=== PATIENT | female | born 1980 | race Two or more races ===

== ENCOUNTER 2018-08-04 20:33 | Emergency (ER) | payer BC ==
[2018-08-04] MEDS ORDERED: Amoxicillin/Clavulanate K 875-125 MG Tab PO ONE (21:08)
[2018-08-04] MEDS ORDERED: Naproxen 500 MG Tab PO ONE (21:09)
--- NOTE | 2018-08-04 21:20 | EDM.PDOC ---
ED HPI GENERAL MEDICAL PROBLEM - General Chief Complaint: ENT Problem Stated Complaint: TOOTH PAIN Time Seen by Provider: 08/04/18 20:48 Source of Information: Reports: Patient, RN Notes Reviewed History Limitations: Reports: No Limitations - History of Present Illness INITIAL COMMENTS - FREE TEXT/NARRATIVE: Patient is a 38-year-old female who presents to the ED for the evaluation of dental pain. This is located in the left upper portion of her mouth. She states that she had her upper wisdom teeth removed on 07/17/2018. The tooth that is bothering her at this time is in the more anterior portion of her mouth. The patient states that she has been using the hydrocodone as directed for pain but this has not provided much pain relief. She states that she has some cheek swelling associated with this. The pain does worsen if she leans her head forward or bends at the waist. She has not had a sore throat with this. She states that she has some mild nausea but is unsure if this is due to the drainage and swelling. The patient is predominantly Lao speaking and does have her daughter present for interpretation. Left Upper Tooth/Teeth Pain Score (Numeric/FACES): 10 - Related Data Allergies Allergy/AdvReac Type Severity Reaction Status Date / Time No Known Allergies Allergy Verified 08/04/18 20:51 Home Meds: Home Meds Amoxicillin/Clavulanate K [Augmentin 875-125 MG] 1 tab PO BID #13 tablet [Rx] Past Medical History - Past Surgical History HEENT Surgical History: Reports: Oral Surgery Social & Family History - Tobacco Use Smoking Status *Q: Never Smoker - Caffeine Use Caffeine Use: Reports: None - Recreational Drug Use Recreational Drug Use: No ED ROS ENT - Review of Systems Review Of Systems: See Below Constitutional: Reports: No Symptoms HEENT: Reports: Dental Pain, Sinus Problem Respiratory: Reports: No Symptoms Cardiovascular: Reports: No Symptoms Endocrine: Reports: No Symptoms GI/Abdominal: Reports: No Symptoms : Reports: No Symptoms Musculoskeletal: Reports: No Symptoms Skin: Reports: No Symptoms Neurological: Reports: No Symptoms Psychiatric: Reports: No Symptoms Hematologic/Lymphatic: Reports: No Symptoms Immunologic: Reports: No Symptoms ED EXAM, ENT - Physical Exam Exam: See Below Exam Limited By: No Limitations General Appearance: Alert, WD/WN, No Apparent Distress Eye Exam: Bilateral Eye: EOMI, Normal Inspection Ears: Normal External Exam, Normal Canal, Hearing Grossly Normal, Normal TMs Nose: Normal Inspection, No Blood, Injected Turbinates (Noted in the left nasal passage.) Mouth/Throat: Normal Inspection, Normal Lips, Normal Oropharynx, Normal Teeth, Dental Pain (Noted to the left upper incisor no obvious signs of drainage. Some mild erythema noted to the gums), Gum Swelling. No: Dry Mucous Membrane, Pharyngeal Erythema, Throat Pain, Throat Swelling, Tongue Swelling, Tonsillar Erythema, Tonsillar Exudates Head: Atraumatic, Normocephalic, Sinus Tenderness (Noted to the left maxillary area) Neck: Normal Inspection, Supple, Non-Tender, Full Range of Motion Respiratory/Chest: No Respiratory Distress, Lungs Clear, Normal Breath Sounds, No Accessory Muscle Use, Chest Non-Tender Cardiovascular: Normal Peripheral Pulses, Regular Rate, Rhythm, No Murmur Neurological: Alert, Oriented, Normal Cognition, No Motor/Sensory Deficits Psychiatric: Normal Affect, Normal Mood Skin: Warm, Dry, Intact, Normal Color, No Rash Course - Vital Signs Last Recorded V/S: Last Vital Signs Temp 98.4 F 08/04/18 20:44 Pulse 79 08/04/18 20:44 Resp 16 08/04/18 20:44 BP 118/80 08/04/18 20:44 Pulse Ox 100 08/04/18 20:44 - Orders/Labs/Meds Meds: Medications Discontinued Medications Generic Name Dose Route Start Last Admin Trade Name Freq PRN Reason Stop Dose Admin Amoxicillin/Clavulanate Potassium 1 tab 08/04/18 21:08 Augmentin 875 Mg/125 Mg PO 08/04/18 21:09 ONETIME ONE Naproxen 500 mg 08/04/18 21:09 Naprosyn PO 08/04/18 21:10 ONETIME ONE - Re-Assessments/Exams Free Text/Narrative Re-Assessment/Exam: 08/04/18 21:18 Patient presents to the ED for the evaluation of dental pain. I have ordered one dose of Augmentin and 500 mg Naprosyn for pain relief. I have provided the patient with a prescription for Augmentin this has been sent to the [facility] [employer] [facility]. I did recommend that she follow up with the dental provider she saw who pulled her wisdom teeth out tomorrow so that they may be aware of her dental infection. Also if they feel comfortable giving her more narcotic pain medication. I did let this be known to the daughter and the daughter agrees to call tomorrow. Departure - Departure Time of Disposition: 21:20 Disposition: Home, Self-Care 01 Condition: Fair Clinical Impression: Pain, dental - Discharge Information *PRESCRIPTION DRUG MONITORING PROGRAM REVIEWED*: No *COPY OF PRESCRIPTION DRUG MONITORING REPORT IN PATIENT EVELIN: No Prescriptions: Amoxicillin/Clavulanate K [Augmentin 875-125 MG] 1 tab PO BID #13 tablet Instructions: Dental Extraction, Care After, [id number] Referrals: PCP,None [Primary Care Provider] - Additional Instructions: You have been evaluated in the ED for your dental pain. You have been provided with a script for Augmentin. This was electronically sent to [facility] located in the [facility] grocery store. Please take this medication as directed. (1 tab twice daily for 7 days or until gone). Augmentin does tend to cause diarrhea, please obtain some probiotics and take this while taking the antibiotic, this may be in the form of yogurt or probiotics that you can get from the pharmacist. Aleve provides good pain relief for dental pain. Please take 1-2 tabs twice daily as needed for pain. You may also use 600 mg ibuprofen every 6 hours as needed for pain relief. Please do not exceed 3200 mg ibuprofen in a 24-hour time span. You may use hot pack/ ice packs to the affected area as tolerated in 15-20 minute intervals. Please follow up with your dental provider as early as able to see if they would be able to re-evaluate you for your dental pain. Please return to the ED if your symptoms change or worsen.
== END 2018-08-04 21:37 | disposition home or self-care (01) ==
LOC: JD.ED 20:33
DX: K08.89 Other specified disorders of teeth and supporting structures (principal)
CPT/HCPCS: 99282; A9270; 99283

== ENCOUNTER 2020-01-03 10:08 | Emergency (ER) | payer SELFPAY ==
[2020-01-03] MEDS ORDERED: Sodium Chloride 0.9% 10 ML Syringe FLUSH PRN (10:44)
--- NOTE | 2020-01-03 11:15 | EDM.PDOC ---
ED HPI GENERAL MEDICAL PROBLEM - General Chief Complaint: Chest Pain Stated Complaint: COVID + /CHEST PAIN Time Seen by Provider: 01/03/20 10:19 Source of Information: Reports: Patient History Limitations: Reports: No Limitations - History of Present Illness INITIAL COMMENTS - FREE TEXT/NARRATIVE: The patient presents with chest pain. She was recently diagnosed with COVID 19. She says she has not felt well for about 3 weeks. She had fevers, chills, fatigue, and cough. She [facility] and tested for COVID 19. She was called yesterday and told she has COVID 19. She had chest pain for days and not it is worse. She does not have shortness of breath. She has no nausea, vomiting, abdominal pain or diarrhea. She has no pain or swelling in her legs. She has no history of DVT or PE. She does not smoke. She has no history of heart disease. She has no other medical problems. Onset: Gradual Duration: Week(s): Location: Reports: Chest Quality: Reports: Sharp Severity: Moderate Improves with: Reports: None Worsens with: Reports: None Associated Symptoms: Reports: Chest Pain, Cough, Fever/Chills. Denies: Headaches, Nausea/Vomiting, Shortness of Breath Chest Pain Score (Numeric/FACES): 9 - Related Data Allergies Allergy/AdvReac Type Severity Reaction Status Date / Time No Known Allergies Allergy Verified 01/03/20 10:22 Past Medical History - Past Surgical History HEENT Surgical History: Reports: Oral Surgery Female Surgical History: Reports: Tubal Ligation Social & Family History - Family History Family Medical History: Noncontributory - Tobacco Use Smoking Status *Q: Never Smoker - Caffeine Use Caffeine Use: Reports: None - Recreational Drug Use Recreational Drug Use: No ED ROS GENERAL - Review of Systems Review Of Systems: See Below Constitutional: Reports: Fever, Chills, Malaise, Weakness, Fatigue HEENT: Reports: No Symptoms Respiratory: Reports: Cough. Denies: Shortness of Breath Cardiovascular: Reports: Chest Pain Endocrine: Reports: Fatigue GI/Abdominal: Reports: No Symptoms : Reports: No Symptoms Musculoskeletal: Reports: No Symptoms ED EXAM, GENERAL - Physical Exam Exam: See Below Exam Limited By: No Limitations General Appearance: Alert, No Apparent Distress Ears: Normal External Exam Nose: Normal Inspection Head: Atraumatic, Normocephalic Neck: Normal Inspection Respiratory/Chest: No Respiratory Distress, Lungs Clear, Normal Breath Sounds Cardiovascular: Regular Rate, Rhythm, No Edema, No Murmur GI/Abdominal: Soft, Non-Tender, No Organomegaly, No Mass Back Exam: Normal Inspection Extremities: Normal Inspection EKG INTERPRETATION EKG Date: 01/03/20 Time: 10:36 Rhythm: NSR Rate (Beats/Min): 82 [place]: Normal P-Wave: Present QRS: Normal ST-T: Normal QT: Normal Course - Vital Signs Last Recorded V/S: Last Vital Signs Temp 97.8 F 01/03/20 10:16 Pulse 81 01/03/20 10:16 Resp 18 01/03/20 10:16 BP 122/75 01/03/20 10:16 Pulse Ox 98 01/03/20 10:16 - Orders/Labs/Meds Orders: Active Orders 24 hr Category Date Time Status Cardiac Monitoring [RC] . DIRECTED Care 01/03/20 10:44 Active EKG Documentation Completion [RC] STAT Care 01/03/20 10:44 Active Peripheral IV Care [RC] . DIRECTED Care 01/03/20 10:44 Active Chest 1V Frontal [CR] Stat Exams 01/03/20 10:44 Taken Sodium Chloride 0.9% [Saline Flush] Med 01/03/20 10:44 Active 10 ml FLUSH ASDIRECTED PRN Peripheral IV Insertion Adult [OM.PC] Stat Oth 01/03/20 10:44 Ordered Medication Orders Sodium Chloride (Saline Flush) 10 ml FLUSH ASDIRECTED PRN PRN Reason: Keep Vein Open Last Admin: 01/03/20 10:51 Dose: 10 ml Documented by: COURTNEY Labs: Laboratory Tests 01/03/20 01/03/20 01/03/20 Range/Units 10:30 10:30 10:30 WBC 3.58 L (3.98-10.04) K/mm3 RBC 4.33 (3.98-5.22) M/mm3 Hgb 12.4 (11.2-15.7) gm/dl Hct 38.9 (34.1-44.9) % MCV 89.8 (79.4-94.8) fl MCH 28.6 (25.6-32.2) pg MCHC 31.9 L (32.2-35.5) g/dl RDW Std Deviation 45.2 (36.4-46.3) fL Plt Count 272 (182-369) K/mm3 MPV 10.1 (9.4-12.3) fl Neut % (Auto) 41.5 (34.0-71.1) % Lymph % (Auto) 46.4 (19.3-51.7) % [place] % (Auto) 9.8 (4.7-12.5) % Eos % (Auto) 2.0 (0.7-5.8) Baso % (Auto) 0.3 (0.1-1.2) % Neut # (Auto) 1.49 L (1.56-6.13) K/mm3 Lymph # (Auto) 1.66 (1.18-3.74) K/mm3 [place] # (Auto) 0.35 (0.24-0.36) K/mm3 Eos # (Auto) 0.07 (0.04-0.36) K/mm3 Baso # (Auto) 0.01 (0.01-0.08) K/mm3 D-Dimer, Quantitative 0.27 (0.19-0.50) mg/L Sodium 140 (136-145) mEq/L Potassium 3.6 (3.5-5.1) mEq/L Chloride 104 (98-107) mEq/L Carbon Dioxide 25 (21-32) mEq/L Anion Gap 14.6 (5-15) BUN 7 (7-18) mg/dL Creatinine 0.8 (0.55-1.02) mg/dL Est Cr Clr Drug Dosing TNP Estimated GFR (MDRD) > 60 (>60) mL/min BUN/Creatinine Ratio 8.8 L (14-18) Glucose 108 H (74-106) mg/dL Calcium 8.6 (8.5-10.1) mg/dL Total Bilirubin 0.4 (0.2-1.0) mg/dL AST 21 (15-37) U/L ALT 27 (14-59) U/L Alkaline Phosphatase 47 (46-116) U/L Troponin I < 0.017 (0.00-0.056) ng/mL Total Protein 7.2 (6.4-8.2) g/dl Albumin 3.6 (3.4-5.0) g/dl Globulin 3.6 gm/dL Albumin/Globulin Ratio 1.0 (1-2) Meds: Medications Generic Name Dose Route Start Last Admin Trade Name Alistair PRN Reason Stop Dose Admin Sodium Chloride 10 ml 01/03/20 10:44 01/03/20 10:51 Saline Flush FLUSH 10 ml ASDIRECTED PRN Administration Keep Vein Open - Re-Assessments/Exams Free Text/Narrative Re-Assessment/Exam: 01/03/20 11:16 I ordered an IV saline lock, EKG, CXR and labs. Her EKG shows a NSR with no acute changes. 01/03/20 11:57 Her CXR looks good. Her WBC was a little low at 3.58. Her D-dimer is negative. Her CMP looks good. Her troponin is negative. Her heart and lungs look good and her oxygen saturations are doing good. I feel she is safe to go home and return if she is worse. Departure - Departure Time of Disposition: 12:00 Disposition: Home, Self-Care 01 Condition: Good Clinical Impression: COVID-19, Atypical chest pain Referrals: PCP,None [Primary Care Provider] - Luis Su SYNOPTIC METEOROLOGIST [Nurse Practitioner] - 1 Week Forms: ED Department Discharge Additional Instructions: Drink plenty of fluids and eat a balanced diet. Take tylenol or naprosyn for any pain. Please return if you are worse. Isolate your self for about 14 days. Sepsis Event Note (ED) - Evaluation Sepsis Screening Result: No Definite Risk - Focused Exam Vital Signs: Vital Signs Temp Pulse Resp BP Pulse Ox 01/03/20 10:16 97.8 F 81 18 122/75 98 - My Orders Last 24 Hours: My Active Orders 01/03/20 10:44 Cardiac Monitoring [RC] . DIRECTED EKG Documentation Completion [RC] STAT Peripheral IV Care [RC] . DIRECTED Chest 1V Frontal [CR] Stat Sodium Chloride 0.9% [Saline Flush] 10 ml FLUSH ASDIRECTED PRN Peripheral IV Insertion Adult [OM.PC] Stat - Assessment/Plan Last 24 Hours: My Active Orders 01/03/20 10:44 Cardiac Monitoring [RC] . DIRECTED EKG Documentation Completion [RC] STAT Peripheral IV Care [RC] . DIRECTED Chest 1V Frontal [CR] Stat Sodium Chloride 0.9% [Saline Flush] 10 ml FLUSH ASDIRECTED PRN Peripheral IV Insertion Adult [OM.PC] Stat
--- NOTE | 2020-01-03 14:45 | CR ---
Chest: Portable view of the chest was obtained. Comparison: No prior chest imaging is available. Heart size and mediastinum are normal. Lungs are clear with no acute parenchymal change. Bony structures are grossly intact. Impression: 1. Nothing acute is seen on portable chest x-ray. Diagnostic code #1 This report was dictated in MDT
== END 2020-01-03 12:20 | disposition home or self-care (01) ==
LOC: JD.ED 10:08
DX: U07.1 COVID-19 (principal); R07.89 Other chest pain
CPT/HCPCS: 36415; 71045; 71045-26; 80053; 84484; 85025; 85379; 93005; 93010; 99283; 99285-25

== ENCOUNTER 2020-01-05 01:58 | Emergency (ER) | payer SELFPAY ==
--- NOTE | 2020-01-05 03:08 | EDM.PDOC ---
ED HPI GENERAL MEDICAL PROBLEM - General Chief Complaint: Respiratory Problem Stated Complaint: COVID POS CHEST PAIN Time Seen by Provider: 01/05/20 02:11 Source of Information: Reports: Patient History Limitations: Reports: Language Barrier (Sister as futures trader over the phone) - History of Present Illness INITIAL COMMENTS - FREE TEXT/NARRATIVE: Ms. Zhang is a pleasant 40-year-old woman with no chronic medical problems, who, medical records indicate, had a fever, chills, cough, and fatigue for about 3 weeks. She was seen at the walk-in clinic on 12/31/2019 and tested for the SARS-CoV-2 virus, being notified of a positive result on 01/02/2020. She was then seen in this ED on 01/03/2020 with a complaint at that time of several days of chest pain. She denied nausea, vomiting, constipation, diarrhea, or abdominal pain. Work-up included a CBC, CMP, troponin, D-dimer, chest x-ray, and ECG, all of which were unremarkable. She was diagnosed with atypical chest pain, and discharged home. The patient now returns to the ED stating that her symptoms are completely unchanged. No fever, cough, or dyspnea. She has been taking [id number] Tylenol Cold & Flu. The patient's sister tells me that the patient does not really understand what the expected symptoms of COVID-19 are, or how long they might last. Here in the ED, the patient is found to be hemodynamically stable, afebrile, saturating 95% on room air. The patient does not have a PCP. Generalized Pain Score (Numeric/FACES): 7 - Related Data Allergies Allergy/AdvReac Type Severity Reaction Status Date / Time No Known Allergies Allergy Verified 01/05/20 02:11 Home Meds: Home Meds . [No Known Home Meds] 01/05/20 [History] Past Medical History - Infectious Disease History Infectious Disease History: Reports: Novel Coronavirus - Past Surgical History Female Surgical History: Reports: Tubal Ligation Social & Family History - Family History Family Medical History: Noncontributory - Tobacco Use Smoking Status *Q: Never Smoker - Caffeine Use Caffeine Use: Reports: None - Alcohol Use Alcohol Use History: No - Recreational Drug Use Recreational Drug Use: No - Living Situation & Occupation Living situation: Reports: Single, Alone Occupation: Unemployed ED ROS GENERAL - Review of Systems Review Of Systems: Comprehensive ROS is negative, except as noted in HPI. ED EXAM, GENERAL - Physical Exam Exam: See Below Exam Limited By: No Limitations General Appearance: Alert, WD/WN, Anxious Eye Exam: Bilateral Eye: EOMI, Normal Inspection Ears: Normal External Exam, Hearing Grossly Normal Nose: Normal Inspection Throat/Mouth: Normal Inspection, Normal Lips, Normal Voice, No Airway Compromise Head: Atraumatic, Normocephalic Neck: Normal Inspection, Full Range of Motion Respiratory/Chest: No Respiratory Distress, Lungs Clear, Normal Breath Sounds, No Accessory Muscle Use. No: Decreased Breath Sounds, Crackles, Rhonchi, Wheezing, Stridor, Prolonged Expiration Cardiovascular: Normal Peripheral Pulses, Regular Rate, Rhythm, No Edema, No Gallop, No JVD, No Murmur, No Rub Peripheral Pulses: 3+: Radial (L), Radial (R) GI/Abdominal: Normal Bowel Sounds, Soft, Non-Tender, No Organomegaly, No Distention, No Abnormal Bruit, No Mass (Female) Exam: Deferred Rectal (Female) Exam: Deferred Back Exam: Normal Inspection, Full Range of Motion, NT Extremities: Normal Inspection, Normal Range of Motion, No Pedal Edema, Normal Capillary Refill Neurological: Alert, Oriented, Normal Cognition, No Motor/Sensory Deficits Psychiatric: Anxious Skin Exam: Warm, Dry, Intact, Normal Color, No Rash Course - Vital Signs Last Recorded V/S: Last Vital Signs Temp 36.6 C 01/05/20 02:08 Pulse 87 01/05/20 02:08 Resp 16 01/05/20 02:08 BP 112/77 01/05/20 02:08 Pulse Ox 95 01/05/20 02:08 - Orders/Labs/Meds Orders: Active Orders 24 hr Category Date Time Status Chest 2V [CR] Stat Exams 01/05/20 03:02 Taken - Re-Assessments/Exams Free Text/Narrative Re-Assessment/Exam: 01/05/20 03:03 As above, the patient was diagnosed with COVID-19 on 12/31/2019, then was seen in this ED on 01/03/2020 with chest pain. An extensive work-up returned completely unremarkable. She now returns the ED with unchanged symptoms. She is afebrile, saturating 95% on room air. Her physical exam is unremarkable. For today's purposes, I have ordered a chest x-ray, but I do not see an indication to repeat the blood work or ECG. 01/05/20 03:32 Two-view chest radiograph appears to be grossly normal. The cardiac silhouette is within normal limits. No pulmonary vascular congestion. No pleural effusions. No focal infiltrate. No pneumothorax. Formal read per the Radiologist pending. 01/05/20 03:36 Chest x-ray results discussed with the patient. I explained that with most patients with a COVID-19, symptoms persist for 2 or 3 weeks, and in some patients, it can persist for months, and that, unfortunately, there are no treatments that have been shown to help with the symptoms, that it will just have to run its course. The patient expressed understanding. I will discharge her home with a referral to the clinic, to establish a PCP. Departure - Departure Time of Disposition: 03:37 Disposition: Home, Self-Care 01 Condition: Good Clinical Impression: COVID-19 - Discharge Information *PRESCRIPTION DRUG MONITORING PROGRAM REVIEWED*: Not Applicable *COPY OF PRESCRIPTION DRUG MONITORING REPORT IN PATIENT EVELIN: Not Applicable Instructions: COVID-19 Frequently Asked Questions, COVID-19: How to Protect Yourself and Others - [facility] Referrals: Mariela Holguin NP [Nurse Practitioner] - Forms: ED Department Discharge Additional Instructions: You were seen in the emergency room for continued chest pain, body aches, and back pain, with intermittent left arm numbness, in the setting of being diagnosed with COVID-19. Work-up in the ER included a chest x-ray, which returned unremarkable. As discussed, most people who have COVID-19 have symptoms for 2 to 3 weeks, and some people have symptoms for several months. Unfortunately, there are no medicines that have been shown to help with COVID-19 symptoms - they will have to run their course. We recommend that you follow-up with Mariela Holguin NP, or 1 of the other providers in the clinic, to establish a PCP. If any other problems, please do not hesitate to return to the ER. Sepsis Event Note (ED) - Evaluation Sepsis Screening Result: No Definite Risk - Focused Exam Vital Signs: Vital Signs Temp Pulse Resp BP Pulse Ox 01/05/20 02:08 36.6 C 87 16 112/77 95 - My Orders Last 24 Hours: My Active Orders 01/05/20 03:02 Chest 2V [CR] Stat - Assessment/Plan Last 24 Hours: My Active Orders 01/05/20 03:02 Chest 2V [CR] Stat
--- NOTE | 2020-01-05 09:26 | CR ---
Chest: 2 views of the chest were obtained. Comparison: Prior chest x-ray of 01/03/20. Heart size and mediastinum are normal. Lungs are clear with no acute parenchymal change. Bony structures are unremarkable. Impression: 1. Nothing acute is appreciated on 2 view chest x-ray. Diagnostic code #1 This report was dictated in MDT
== END 2020-01-05 04:00 | disposition home or self-care (01) ==
LOC: JD.ED 01:58
DX: U07.1 COVID-19 (principal)
CPT/HCPCS: 71046; 71046-26; 99282; 99284-25

== ENCOUNTER 2020-02-05 02:52 | Emergency (ER) | payer SELFPAY ==
[2020-02-05] MEDS ORDERED: Orphenadrine 100 MG Tab.ER PO STA (03:54)
[2020-02-05] MEDS ORDERED: Acetaminophen/HYDROcodone 325-5 MG Tab PO STA (03:54)
--- NOTE | 2020-02-05 04:00 | EDM.PDOC ---
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 Zhang is a very pleasant 40-year-old woman with a past medical history significant for being diagnosed with COVID-19 on 12/31/2019, who now presents the ED for lower back pain, worse on the right than the left. She states that she has been experiencing lower back pain on and off for the past 2 months, however, it has been persistent since this past , 02/03/2020. She describes the pain is constant and burning. She gets relief if she palpates the area. No associated nausea, vomiting, constipation, diarrhea, urinary symptoms, or fever. The patient was prescribed tramadol for generalized body aches on 01/06/2020. She states that she has been taking that for her lower back pain, including her most recent dose around 03:00 this morning. Here in the ED, the patient is found to be hemodynamically stable, afebrile, saturating 97% on room air. Other than her lower back pain, the patient denies having a recent fever, chills, sore throat, ear pain, nasal or sinus congestion, cough, dyspnea, chest pain, palpitations, nausea, vomiting, constipation, diarrhea, abdominal pain, urinary symptoms, recent weight gain or weight loss, recent bloody bowel movements or black bowel movements, recent joint aches, headaches, or rashes. The patient's PCP is Luis Su NP. She has an appointment to see Ms. Su this coming 02/07/2020. Right Flank Pain Score (Numeric/FACES): 9 - Related Data Allergies Allergy/AdvReac Type Severity Reaction Status Date / Time No Known Allergies Allergy Verified 02/05/20 03:08 Home Meds: Home Meds Orphenadrine [Norflex] 1 tab PO Q12H PRN #14 tab.er 02/05/20 [Rx] traMADol HCl [Tramadol HCl] 50 mg PO Q6H PRN 02/05/20 [History] Past Medical History - Infectious Disease History Infectious Disease History: Reports: Novel Coronavirus (dx'd 12/31/2019) - Past Surgical History HEENT Surgical History: Reports: Oral Surgery Female Surgical History: Reports: Tubal Ligation Social & Family History - Family History Family Medical History: Noncontributory - Tobacco Use Smoking Status *Q: Never Smoker - Caffeine Use Caffeine Use: Reports: None - Alcohol Use Alcohol Use History: No - Recreational Drug Use Recreational Drug Use: No - Living Situation & Occupation Living situation: Reports: Single, Alone Occupation: Unemployed ED ROS GENERAL - Review of Systems Review Of Systems: Comprehensive ROS is negative, except as noted in HPI. ED EXAM, GENERAL - Physical Exam Exam: See Below Exam Limited By: No Limitations General Appearance: Alert, WD/WN, Anxious, Mild Distress (appears uncomfortable) Eye Exam: Bilateral Eye: EOMI, Normal Inspection Ears: Normal External Exam, Hearing Grossly Normal Nose: Normal Inspection Throat/Mouth: Normal Inspection, Normal Lips, Normal Voice, No Airway Compromise Head: Atraumatic, Normocephalic Neck: Normal Inspection, Full Range of Motion Respiratory/Chest: No Respiratory Distress, Lungs Clear, Normal Breath Sounds, No Accessory Muscle Use Cardiovascular: Normal Peripheral Pulses, Regular Rate, Rhythm, No Edema, No Gallop, No JVD, No Murmur, No Rub Peripheral Pulses: 3+: Radial (L), Radial (R) GI/Abdominal: Normal Bowel Sounds, Soft, Non-Tender (including the RLQ), No Organomegaly, No Distention, No Abnormal Bruit, No Mass (Female) Exam: Deferred Rectal (Female) Exam: Deferred Back Exam: Normal Inspection, Full Range of Motion, Paraspinal Tenderness (right greater than the left, without percussion). No: CVA Tenderness (L), CVA Tenderness (R) (right greater than the left), Vertebral Tenderness Extremities: Normal Inspection, Normal Range of Motion, No Pedal Edema, Normal Capillary Refill Neurological: Alert, Oriented, Normal Cognition, No Motor/Sensory Deficits Psychiatric: Anxious Skin Exam: Warm, Dry, Intact, Normal Color, No Rash Course - Vital Signs Last Recorded V/S: Last Vital Signs Temp 36.5 C 02/05/20 03:05 Pulse 72 02/05/20 03:05 Resp 16 02/05/20 03:05 BP 111/64 02/05/20 03:05 Pulse Ox 97 02/05/20 03:05 - Orders/Labs/Meds Orders: Active Orders 24 hr Category Date Time Status Abdomen Pelvis wo Cont [CT] Stat Exams 02/05/20 03:54 Taken Labs: Laboratory Tests 02/05/20 02/05/20 Range/Units 04:10 04:10 Urine Color Yellow (Yellow) Urine Appearance Clear (Clear) Urine pH 6.0 (5.0-8.0) Ur Specific [place] 1.020 (1.005-1.030) Urine Protein Negative (Negative) Urine Glucose (UA) Negative (Negative) Urine Ketones Negative (Negative) Urine Occult Blood Negative (Negative) Urine Nitrite Negative (Negative) Urine Bilirubin Negative (Negative) Urine Urobilinogen 0.2 (0.2-1.0) Ur Leukocyte Esterase Negative (Negative) Urine RBC 0-5 (0-5) /hpf Urine WBC 0-5 (0-5) /hpf Ur Squamous Epith Cells 0-5 (0-5) /hpf Urine Bacteria Few (FEW) /hpf Urine Mucus Few (FEW) /hpf Urine HCG, Qual Negative (NEGATIVE) Meds: Medications Discontinued Medications Generic Name Dose Route Start Last Admin Trade Name Alistair PRN Reason Stop Dose Admin Hydrocodone Bitart/Acetaminophen 1 tab 02/05/20 03:54 02/05/20 04:06 Boswell 325-5 Mg PO 02/05/20 03:55 1 tab ONETIME STA Administration Orphenadrine Citrate 100 mg 02/05/20 03:54 02/05/20 04:06 Norflex PO 02/05/20 03:55 100 mg ONETIME STA Administration - Re-Assessments/Exams Free Text/Narrative Re-Assessment/Exam: 02/05/20 03:56 As above, the patient has been experiencing intermittent lower back pain, much greater on the right than the left, for the past couple of months, but the pain has been persistent since this past , 02/03/2020. No recent fever, nausea, vomiting, or urinary symptoms. On examination, she has bilateral CVA tenderness, much worse on the right than the left, but also tenderness to palpation of her lower back musculature on both sides without percussion, again much worse on the right than the left. Her examination indicates a musculoskeletal etiology, however, in order to avoid not diagnosing a ureterolith, I have ordered a urinalysis, urine test, and a CT of the abdomen and pelvis without contrast. In the meantime, the patient will be given a single tablet of [place]well (she took tramadol just prior to coming to the ED) as well as Norflex. 02/05/20 04:36 The patient's urinalysis is completely normal. Her urine test is negative. 02/05/20 04:59 CT of the abdomen and pelvis without contrast is read by Kali as "No etiology for right lower quadrant pain is demonstrated." 02/05/20 05:14 Test results discussed with the patient using the iPad maritime pilot. As above, today's work-up is unremarkable, and rules out a kidney stone or UTI as the source of her symptoms. I believe her pain is musculoskeletal in etiology. I will therefore prescribe Norflex, that she can take every 12 hours starting this evening, along with [id number] ibuprofen, 3 tablets every 8 hours, with food. The patient can then follow-up with her PCP at her previously scheduled appointment this coming 02/07/2020. The patient expressed understanding and satisfaction. Departure - Departure Time of Disposition: 05:16 Disposition: Home, Self-Care 01 Condition: Good Clinical Impression: Muscle spasm of back - Discharge Information *PRESCRIPTION DRUG MONITORING PROGRAM REVIEWED*: Not Applicable *COPY OF PRESCRIPTION DRUG MONITORING REPORT IN PATIENT EVELIN: Not Applicable Prescriptions: Orphenadrine [Norflex] 1 tab PO Q12H PRN #14 tab.er PRN Reason: Muscle Spasm Instructions: Muscle Cramps and Spasms, [id number] Referrals: Luis Su NP [Nurse Practitioner] - Forms: ED Department Discharge Additional Instructions: You were seen in the emergency room for remittent lower back pain, worse on the left than the right, for the past 2 months, but persistent since , 02/03/2020. Work-up in the ER included a urinalysis, a urine test, and a CT scan of your abdomen and pelvis without contrast. Your entire work-up was unremarkable. You do not have a urinary tract infection. You do not have a kidney stone. Based on your history, physical exam, and ER tests, the cause of your pain is most likely due to a muscle spasm. You have been started on the muscle relaxant Norflex, and [facility] Take 1 tablet of Norflex every 12 hours, starting this evening, 02/05/2020, as prescribed. Norflex works well with ibuprofen. We recommend that you take 3 tablets (600 mg) up to every 8 hours, with food, as needed for pain. Follow-up with your PCP, Elfego Su NP, at your previously scheduled appointment this coming 02/07/2020. If any other problems, please do not hesitate to return to the ER. Sepsis Event Note (ED) - Evaluation Sepsis Screening Result: No Definite Risk - Focused Exam Vital Signs: Vital Signs Temp Pulse Resp BP Pulse Ox 02/05/20 03:05 36.5 C 72 16 111/64 97 - My Orders Last 24 Hours: My Active Orders 02/05/20 03:54 Abdomen Pelvis wo Cont [CT] Stat - Assessment/Plan Last 24 Hours: My Active Orders 02/05/20 03:54 Abdomen Pelvis wo Cont [CT] Stat
--- NOTE | 2020-02-05 06:46 | CT ---
CT abdomen and pelvis Technique: Multiple axial sections were obtained from above the dome of the diaphragm inferiorly through the pubic symphysis. Intravenous and oral contrast not utilized. Study has been performed as a ureteral stone protocol. Comparison: No prior abdominal CT exam is available. Findings: Small 4 mm nodule is noted adjacent to the pleural margin within the right middle lobe most likely benign given the patient's age. Low-density lesion noted within the periphery of the right lobe of the liver which has Hounsfield unit measurements of a cyst. This measures 1.0 cm in size. No additional abnormalities appreciated within the liver. Spleen appears normal. Adrenal glands show no nodule. Pancreas shows no discrete abnormality. Gallbladder contains no calcified gallstones. Kidneys show no abnormal calcifications. No ureteral dilatation or ureteral calculi are seen. No bladder calculi are noted. Aorta shows no aneurysm. No retroperitoneal adenopathy or mesenteric abnormalities are seen. No pelvic mass or adenopathy is identified. Mild increased stool is seen throughout the colon. Appendix not visualized with certainty. Bone window settings were reviewed. No acute osseous finding is appreciated. Impression: 1. Small nodule within the right lung base believed to be benign. Cyst within the right lobe of the liver. 2. No renal calculi, ureteral dilatation or ureteral stone is seen. 3. Nothing acute is appreciated on noncontrast CT study of the abdomen and pelvis. Diagnostic code #2 This report was dictated in MDT I agree with preliminary report from ad[facility]isa, finalized on 02/05/20, 5:39 AM Central Daylight Time
== END 2020-02-05 05:36 | disposition home or self-care (01) ==
LOC: JD.ED 02:52
DX: M62.830 Muscle spasm of back (principal); Z98.51 Tubal ligation status; Z86.19 Personal history of other infectious and parasitic diseases
CPT/HCPCS: 74176; 81001; 81025; 99284; A9270; 99283